=== PATIENT | female | born 1990 | race American Indian/Alaskan Native ===

== ENCOUNTER 2019-09-15 14:09 | Emergency (ER) | payer SELFPAY ==
--- NOTE | 2019-09-15 16:40 | Event Note ---
ED Screening Note Date of service: 09/15/19 Time: 16:37 ED Screening Note: This is a 28 y.o. F. that presents to the ER with grinding sensation to bilateral eyes for 1 week. Patient states she was diagnosed with conjunctivitis at another ER last week and prescribed polymyxin eye drops. This initial assessment/diagnostic orders/clinical plan/treatment(s) is/are subject to change based on patients health status, clinical progression and re- assessment by fellow clinical providers in the ED. Further treatment and workup at subsequent clinical providers discretion. Patient/guardian urged not to elope from the ED as their condition may be serious if not clinically assessed and managed. Initial orders include:
--- NOTE | 2019-09-15 20:15 | Emergency Department Report ---
ED Eye Problem HPI - General Chief complaint: Eye Problems Stated complaint: EYES RED/PAIN Time Seen by Provider: 09/15/19 16:34 Source: patient Mode of arrival: Ambulatory Limitations: No Limitations - History of Present Illness Initial comments: pt is a 28-year-old female presents emergency room with complaints of bilateral eye redness and discomfort that began a week ago. She states that a week ago she went to another emergency room and was treated for conjunctivitis with antibiotic eyedrops. She states initially that it was just on the right side but now has moved to the left eye as well. She states she has associated eye drainage, eye watering, eyelash matting, crusting. She denies getting anything into the eye. She denies any contact lens use. She denies any vision changes. She denies any past medical history. She states she has an allergy to penicillin. - Related Data Previous Rx's Medication Instructions Recorded Last Taken Type Erythromycin [Erythromycin Ophth 1 applic OP QID 7 Days #1 tube 09/15/19 Unknown Rx Oint] Ketotifen Fumarate 1 drop OP BID #1 bottle 09/15/19 Unknown Rx Allergies Allergy/AdvReac Type Severity Reaction Status Date / Time Penicillins Allergy Unknown Verified 09/15/19 16:39 ED Review of Systems ROS: Stated complaint: EYES RED/PAIN Other details as noted in HPI Comment: All other systems reviewed and negative ED Past Medical Hx - Social History Smoking Status: Never Smoker Substance Use Type: Alcohol, Marijuana - Medications Home Medications: Home Medications Medication Instructions Recorded Confirmed Last Taken Type Erythromycin [Erythromycin Ophth 1 applic OP QID 7 Days #1 tube 09/15/19 Unknown Rx Oint] Ketotifen Fumarate 1 drop OP BID #1 bottle 09/15/19 Unknown Rx ED Physical Exam - General Limitations: No Limitations General appearance: alert, in no apparent distress - Head Head exam: Present: atraumatic, normocephalic - Eye Eye exam: Present: PERRL, EOMI, conjunctival injection (bilateral, right greater than left, crusting and drainage present in the right eye, cobblestoning present in the bilateral eyelids. ), other (small internal hordeolum to the right upper eyelid). Absent: periorbital swelling, periorbital tenderness - ENT ENT exam: Present: mucous membranes moist - Neurological Exam Neurological exam: Present: alert, oriented X3 - Psychiatric Psychiatric exam: Present: normal affect, normal mood - Skin Skin exam: Present: warm, dry, intact ED Course Vital Signs 09/15/19 09/15/19 16:35 20:39 Temperature 98.0 F 98.2 F Pulse Rate 80 78 Respiratory 18 16 Rate Blood Pressure 121/55 121/76 O2 Sat by Pulse 100 100 Oximetry ED Medical Decision Making - Medical Decision Making pt is a 28-year-old female presents emergency room with complaints of bilateral eye redness and discomfort that began a week ago. She states that a week ago she went to another emergency room and was treated for conjunctivitis with antibiotic eyedrops. She states initially that it was just on the right side but now has moved to the left eye as well. She states she has associated eye drainage, eye watering, eyelash matting, crusting. She denies getting anything into the eye. She denies any contact lens use. She denies any vision changes. She denies any past medical history. She states she has an allergy to penicillin. vitals are normal. on exam: conjunctival injection bilateral, right greater than left, crusting and drainage present in the right eye, cobblestoning present in the bilateral eyelids, small internal hordeolum to the right upper eyelid, PERRL, EOMI. patient will be given erythromycin ophthalmic ointment and Zaditor eyedrops. Please use medication as prescribed. Wash your hands frequently. Avoid rubbing the eyes. Please change your bed sheets and pillow cases. follow up with bottom man in the next 3 days. Return to the emergency room for any new or worsening symptoms. Critical care attestation.: If time is entered above; I have spent that time in minutes in the direct care of this critically ill patient, excluding procedure time. ED Disposition Clinical Impression: Conjunctivitis Qualifiers: Conjunctivitis type: acute Acute conjunctivitis type: unspecified Laterality: bilateral Qualified Code(s): H10.33 - Unspecified acute conjunctivitis, bilateral Internal hordeolum of right eye Qualifiers: Eyelid: upper Qualified Code(s): H00.021 - Hordeolum internum right upper eyelid Disposition: DC-01 TO HOME OR SELFCARE Is pt being admited?: No Does the pt Need Aspirin: No Condition: Stable Instructions: Conjunctivitis (ED), Stye (ED) Additional Instructions: Please use medication as prescribed. wait 30 minutes after using drops before placing eye ointment. Wash your hands frequently. Avoid rubbing the eyes. Please change your bed sheets and pillow cases. follow up with bottom man in the next 3 days. Return to the emergency room for any new or worsening symptoms. Prescriptions: Erythromycin [Erythromycin Ophth Oint] 1 applic OP QID 7 Days #1 tube Ketotifen Fumarate 1 drop OP BID #1 bottle Referrals: KOURTNEY HOU MD [Staff Physician] - 2-3 Days [facility] [Provider Group] - 2-3 Days Forms: Accompanied Note, Work/School Release Form(ED) Time of Disposition: 20:16 Print Language: [id number]
[2019-09-15 20:46] VITALS: BP 121/76
== END 2019-09-15 20:41 | disposition home or self-care (01) ==
LOC: ED 14:09
DX: H10.33 Unspecified acute conjunctivitis, bilateral (principal); H00.021 Hordeolum internum right upper eyelid
CPT/HCPCS: 99281